=== PATIENT | male | born 1955 | race Caucasian/White ===

== ENCOUNTER 2019-06-01 15:10 | Observation (INO) ==
[2019-06-01 15:49] LABS: Basophils # 0.1 K/mcL (0.0-0.2); Basophils % 1.2 %; Eosinophils # 0.1 K/mcL (0.0-0.6); Hematocrit 44.8 % (37.5-50.1); Immature Granulocytes % 0.2 % (0-4); Lymphocytes # 2.8 K/mcL (0.6-4.6); Lymphocytes % 29.9 %; Mean Corpuscular HGB Conc 35.7 g/dL (31.6-35.5); Mean Corpuscular Hemoglobin 31.9 pg (28.0-33.3); Mean Corpuscular Volume 89.2 fL (83.0-100.0); Mean Platelet Volume 9.3 fL (9.4-12.4); Monocytes # 0.6 K/mcL (0.0-1.3); Monocytes % 6.3 %; Neutrophils # 5.8 K/mcL (1.6-8.9); Platelet Count 254 K/mcL (140-400); Red Blood Count 5.02 M/mcL (4.19-5.50); Red Cell Distribution Width 12.6 % (11.5-14.5); Segmented Neutrophils % 61.4 %; White Blood Count 9.4 K/mcL (4.3-11.1)
[2019-06-01 15:54] LABS: Prothrombin Time 11.7 Seconds (9.4-12.1)
[2019-06-01 16:18] LABS: BUN/Creatinine Ratio 19 (6-26); Blood Urea Nitrogen 26 mg/dL (8-23); Calcium 9.9 mg/dL (8.6-10.3); Carbon Dioxide 22 mEq/L (23-29); Chloride 104 mEq/L (98-107); Glucose 169 mg/dL (70-105); Lipase 23 Units/L (11-82); Osmolality,Calculated 293 (280-300); Potassium 3.7 mEq/L (3.5-5.1); Sodium 137 mEq/L (136-145); Troponin I < 0.03 ng/mL (< 0.04); eGFR For African Americans > 60 (> 60); eGFR For Non-African Americans 52 (> 60)
[2019-06-01] MEDS ORDERED: Aspirin 325 MG TABLET PO ONE (16:27)
[2019-06-01] MEDS ORDERED: Naloxone 0.4 MG/ML INJ IVP PRN (17:14)
[2019-06-01] MEDS ORDERED: Acetaminophen 325 MG TABLET PO PRN (17:14)
[2019-06-01] MEDS ORDERED: Mag Hydrox/Al Hydrox/Simeth 30 ML UDC PO PRN (17:14)
[2019-06-01] MEDS ORDERED: Ondansetron ODT 4 MG TAB.RAPDIS SL PRN (17:14)
[2019-06-01] MEDS ORDERED: MOM Conc 10 ML UD.LIQ PO PRN (17:14)
[2019-06-01] MEDS ORDERED: *HR* Dextrose 50 % in Water (Syg) 50 ML SYRINGE IVP PRN (17:18)
[2019-06-01] MEDS ORDERED: D5% in Water 1,000 ML IVC PRN (17:18)
[2019-06-01] MEDS ORDERED: Dextrose Gel 15 GM/37.5 ML TUBE PO PRN ×2 (17:18)
[2019-06-01] MEDS ORDERED: Nicotine 21 MG PATCH.TD24 TD PRN (17:50)
[2019-06-01] MEDS ORDERED: Insulin LISPRO 300 UNITS/3 ML VIAL SQ SCH (21:00)
[2019-06-01] MEDS ORDERED: 0.9 % Sodium Chloride 1,000 ML IVC SCH (23:55)
[2019-06-02 00:50] LABS: Hematocrit 40.3 % (37.5-50.1); Mean Corpuscular HGB Conc 35.5 g/dL (31.6-35.5); Mean Corpuscular Hemoglobin 32.1 pg (28.0-33.3); Mean Corpuscular Volume 90.4 fL (83.0-100.0); Mean Platelet Volume 9.3 fL (9.4-12.4); Platelet Count 241 K/mcL (140-400); Red Blood Count 4.46 M/mcL (4.19-5.50); Red Cell Distribution Width 12.8 % (11.5-14.5); White Blood Count 8.2 K/mcL (4.3-11.1)
[2019-06-02 00:54] LABS: Hemoglobin 14.3 g/dL (12.9-16.9)
[2019-06-02 01:14] LABS: Calcium 9.2 mg/dL (8.6-10.3); Chol/HDL Ratio 5.7 (0-4.9); Magnesium 1.9 mg/dL (1.6-2.6); Potassium 3.7 mEq/L (3.5-5.1)
[2019-06-02 01:53] LABS: Bilirubin,Urine Negative (Negative); Blood,Urine Negative (Negative); Clarity,Urine Hazy (Clear); Color,Urine Yellow (Yellow); Glucose,Urine (UA) Normal (Normal); Ketones,Urine Negative (Negative); Leukocyte Esterase,Urine Moderate (Negative); Nitrite,Urine Negative (Negative); Protein,Urine Negative (Neg-Trace); Urobilinogen,Urine Normal (Normal)
[2019-06-02 02:06] LABS: Bacteria,Urine Moderate per hpf (None-Few); Hyaline Casts,Urine Few per lpf (None-Few); RBC,Urine 0-3 per hpf (0-3); Squamous Epithelial Cell,Urine Few per lpf (None-Few)
[2019-06-02] MEDS ORDERED: Aspirin 81 MG TAB.CHEW PO SCH (09:00)
[2019-06-02] MEDS: Insulin LISPRO 300 UNITS/3 ML VIAL SQ SCH ×2 (09:32→12:36)
[2019-06-02 09:46] LABS: Estimated Average Glucose 160 mg/dl
[2019-06-02] MEDS ORDERED: Regadenoson 0.4 MG/5 ML SYRINGE IVP ONE (10:49)
[2019-06-02 12:23] VITALS: BP 136/78
== END 2019-06-02 15:50 | disposition home or self-care (01) ==
LOC: 3BNU 15:10 → EMEROOARM 15:10 → SUATTDRO 17:37 → 3BNU 18:37
PROVIDERS: ADMIT Internal Medicine; ATTEND Internal Medicine